=== PATIENT | male | born 1960 | race Hispanic/Latino ===

== ENCOUNTER 2018-03-02 05:55 | Inpatient (IN) | payer OTHER, MEDICARE ==
[2018-02-27 13:45] VITALS: BP 121/68
[2018-02-27 14:03] LABS: BASOPHILS % (AUTO) 0.8 % (0.0-5.0); EOSINOPHILS % (AUTO) 1.9 % (0.0-8.0); HEMATOCRIT 36.4 % (42-54); LYMPHOCYTES % (AUTO) 14.4 % (21.0-51.0); MEAN CORPUSCULAR HEMOGLOBIN 30.6 pg (27.0-33.0); MEAN CORPUSCULAR HGB CONC 33.8 g/dL (32.0-36.0); MEAN CORPUSCULAR VOLUME 90.5 fL (79-99); MONOCYTES % (AUTO) 8.6 % (3.0-13.0); NEUTROPHILS % (AUTO) 74.3 % (40.0-77.0); PLATELET COUNT (AUTO) 153 K/uL (130-400); RED BLOOD CELL COUNT(AUTO) 4.03 MIL/uL (4.50-6.20); RED CELL DISTRIBUTION WIDTH 16.1 % (11.0-15.5); WHITE BLOOD COUNT (AUTO) 6.2 K/uL (4.8-10.8)
[2018-02-27 14:15] LABS: CREATININE 1.5 mg/dL (0.5-1.5); POTASSIUM 5.4 mmol/L (3.5-5.1)
[2018-02-27 14:17] LABS: INR 2.19 (0.85-1.15); PARTIAL THROMBOPLASTIN TIME 36.2 SEC (26.3-35.5); PROTHROMBIN TIME 22.6 SEC (9.6-11.6)
[2018-02-27 14:27] LABS: APPEARANCE,URINE Clear (CLEAR); BILIRUBIN,URINE Negative (NEGATIVE); COLOR,URINE Yellow (YELLOW); GLUCOSE, URINE (UA) Negative (NEGATIVE); KETONES,URINE Negative (NEGATIVE); LEUKOCYTE ESTERASE ,URINE Negative (NEGATIVE); NITRATE,URINE Negative (NEGATIVE); OCCULT BLOOD,URINE Negative (NEGATIVE); PROTEIN,URINE Trace (NEGATIVE)
[2018-02-27 14:58] LABS: BACTERIA,URINE Rare /HPF (None Seen); RBC,URINE None Seen /HPF (0-1); SQUAMOUS EPITHELIAL CELL,UR None Seen /HPF (0-2); WBC,URINE None Seen /HPF (0-1)
[2018-03-02] VITALS (21 sets, daily range): BP systolic 97–164; BP diastolic 56–90
[~2018-03-02] VITALS: Ht 172.7 cm; Wt 108.3 kg
[~2018-03-02 05:55] MED LIST: ALLO100T PO; ATOR40TA71 PO; FURO20TA4 PO; GABA-529 PO; GLIP-220 PO; INSU300I SQ; ISOS30TA6 PO; LINA1TAB3 PO; LISI-617 PO; METO25TA6 PO; SODIUM CHLORIDE 0.9% 500ML 500 ML IV SCH; WARF7.5T49 PO
[2018-03-02 06:31] LABS: CREATININE 1.5 mg/dL (0.5-1.5)
[2018-03-02 06:34] LABS: INR 1.53 (0.85-1.15); PARTIAL THROMBOPLASTIN TIME 33.1 SEC (26.3-35.5); PROTHROMBIN TIME 15.9 SEC (9.6-11.6)
[2018-03-02] MEDS ORDERED: SODIUM CHLORIDE 0.9% 1000ML 1,000 ML IV ONE (07:12)
[2018-03-02] MEDS ORDERED: LIDOCAINE HCL-MPF 2% 5ML VIAL ONE (09:00)
[2018-03-02] MEDS ORDERED: IOHEXOL 350 MG/ML 100ML INFUS..BTL IV ONE ×2 (09:01→09:18)
[2018-03-02] MEDS ORDERED: NITROGLYCERIN 5 MG/ML 10 ML VIAL IV ONE (09:01)
[2018-03-02] MEDS ORDERED: IOHEXOL-350 50ML VIAL IV ONE (09:01)
[2018-03-02] MEDS ORDERED: MIDAZOLAM HCL 1 MG/ML 2ML VIAL ONE (09:07)
[2018-03-02] MEDS ORDERED: FENTANYL CITRATE PF 50 MCG/1 ML 2ML VIAL ONE (09:08)
[2018-03-02] MEDS ORDERED: SODIUM CHLORIDE 0.9% 1000ML 1,000 ML IV SCH (09:26)
[2018-03-02] MEDS ORDERED: DEXTROSE 50%-WATER 50 ML DISP.SYRIN IV PRN (09:30)
[2018-03-02] MEDS ORDERED: NITROGLYCERIN 0.4 MG SL TAB SL PRN (09:30)
[2018-03-02] MEDS ORDERED: GLUCAGON 1MG KIT 1 MG ML IM PRN (09:30)
[2018-03-02] MEDS ORDERED: HYDRALAZINE HCL 20 MG/ML VIAL IV PRN (09:30)
[2018-03-02] MEDS ORDERED: ATROPINE SULFATE 0.1 MG/ML 10 ML SYG IVP ONE (09:42)
[2018-03-02] MEDS: INSULIN HUMULIN R 100 UNIT/ML 3ML SQ SCH ×3 (11:30→21:45)
[2018-03-02] MEDS: GABAPENTIN 100 MG CAPSULE PO SCH ×2 (13:36→21:41)
[2018-03-02 14:41] LABS: CREATINE KINASE MB 1.8 ng/mL (0.5-3.6); TROPONIN I 0.08 ng/mL (0.00-0.06)
[2018-03-02] MEDS ORDERED: ENOXAPARIN SODIUM 100 MG/1 ML SQ SCH (15:00)
[2018-03-02 18:58] LABS: HEMOGLOBIN A1C 7.7 % (4.0-6.0)
[2018-03-02] MEDS ORDERED: CEFUROXIME SODIUM 1.5 GM VIAL IVP PRN (19:00)
[2018-03-02] MEDS: ATORVASTATIN CALCIUM 40 MG TABLET PO SCH (21:41)
[2018-03-02] MEDS: METOPROLOL TARTRATE 25 MG TAB PO SCH (21:41)
[2018-03-03] VITALS (7 sets, daily range): BP systolic 82–151; BP diastolic 54–72
[2018-03-03 04:20] LABS: HEMATOCRIT 36.1 % (42-54); MEAN CORPUSCULAR HEMOGLOBIN 30.8 pg (27.0-33.0); MEAN CORPUSCULAR HGB CONC 34.3 g/dL (32.0-36.0); MEAN CORPUSCULAR VOLUME 89.8 fL (79-99); PLATELET COUNT (AUTO) 149 K/uL (130-400); RED BLOOD CELL COUNT(AUTO) 4.02 MIL/uL (4.50-6.20); RED CELL DISTRIBUTION WIDTH 16.1 % (11.0-15.5); WHITE BLOOD COUNT (AUTO) 7.1 K/uL (4.8-10.8)
[2018-03-03 04:28] LABS: INR 1.22 (0.85-1.15); PARTIAL THROMBOPLASTIN TIME 32.9 SEC (26.3-35.5); PROTHROMBIN TIME 12.8 SEC (9.6-11.6)
[2018-03-03 04:40] LABS: CREATININE 1.4 mg/dL (0.5-1.5); POTASSIUM 4.5 mmol/L (3.5-5.1)
[2018-03-03] MEDS: INSULIN HUMULIN R 100 UNIT/ML 3ML SQ SCH (06:43)
[2018-03-03] MEDS ORDERED: LIDOCAINE HCL-MPF 0.5% 50ML VIAL IJ ONE (06:44)
[2018-03-03] MEDS ORDERED: OCTYL 2-CYANOACRYLATE 1 EACH TP ONE ×2 (06:44→14:49)
[2018-03-03] MEDS ORDERED: BACITRACIN 50,000 UNIT VIAL ONE (06:44)
[2018-03-03] MEDS: METOPROLOL TARTRATE 25 MG TAB PO SCH (06:48)
[2018-03-03] MEDS ORDERED: SODIUM CHLORIDE 0.9% 1000ML 1,000 ML IV ONE (06:55)
[2018-03-03] MEDS ORDERED: CEFUROXIME 1.5GM+NS 100ML 100 ML IV SCH ×2 (07:00→21:45)
[2018-03-03] MEDS ORDERED: EPINEPHRINE 1 MG/ML AMPULE ONE (07:12)
[2018-03-03] MEDS ORDERED: AMINOCAPROIC ACID 250 MG/ML 20 ML VIAL IV ONE (07:12)
[2018-03-03] MEDS ORDERED: NOREPINEPHRINE BITARTRATE 1 MG/1 ML ML IV ONE (07:12)
[2018-03-03] MEDS ORDERED: LIDOCAINE PF 2% 5ML ABBOJECT ONE (07:12)
[2018-03-03] MEDS ORDERED: PROTAMINE SULFATE 10 MG/ML 25ML VIAL IV ONE (07:12)
[2018-03-03] MEDS ORDERED: ESMOLOL HCL 10 MG/ML 10 ML VIAL ONE (07:12)
[2018-03-03] MEDS ORDERED: ROCURONIUM BROMIDE 10MG/1ML 5ML VL ONE ×2 (07:12→12:51)
[2018-03-03] MEDS ORDERED: GLYCOPYRROLATE 0.2 MG/ML 5 ML VIAL ONE (07:12)
[2018-03-03] MEDS ORDERED: MILRINONE-D5W 20 MG/100 ML 100 ML IV ONE (07:12)
[2018-03-03] MEDS ORDERED: HEPARIN SODIUM 1000UNIT/ML 10ML VIAL ONE ×2 (07:12→07:48)
[2018-03-03] MEDS ORDERED: NEOSTIGMINE 5MG/5ML SYR IV ONE (07:12)
[2018-03-03] MEDS ORDERED: PROPOFOL 10 MG/ML 20ML VIAL IV ONE (07:13)
[2018-03-03] MEDS ORDERED: MIDAZOLAM HCL 1 MG/ML 5ML VIAL ONE (07:13)
[2018-03-03] MEDS ORDERED: FENTANYL CITRATE PF 50 MCG/1 ML 20ML VIAL IJ ONE ×2 (07:13→10:37)
[2018-03-03] MEDS ORDERED: NITROGLYCERIN 50 MG/D5% WATER 1 BOT ONE (07:23)
[2018-03-03] MEDS ORDERED: POTASSIUM CHLORIDE 20MEQ/100ML 200 ML IV ONE (07:32)
[2018-03-03] MEDS ORDERED: SODIUM BICARB 8.4% 50ML SYRINGE ONE ×2 (07:33→07:35)
[2018-03-03] MEDS ORDERED: THROMBIN-JMI 5000 UNIT/VIAL TP ONE (07:48)
[2018-03-03 08:13] LABS: ABG BASE EXCESS -1.3 mmol/L (-2.0-3.0); ABG HCO3 23.3 mmol/L (21.0-28.0); ABG OXYGEN SATURATION 99.2 % (95.0-99.0); ABG PCO2 39 mmHg (35-48)
[2018-03-03] MEDS ORDERED: ISOSORBIDE MONO 30MG TAB SR PO SCH (09:00)
[2018-03-03] MEDS ORDERED: LISINOPRIL 5 MG TABLET PO SCH (09:00)
[2018-03-03] MEDS ORDERED: FUROSEMIDE 20 MG TABLET PO SCH (09:00)
[2018-03-03] MEDS ORDERED: ALLOPURINOL 100 MG TABLET PO SCH (09:00)
[2018-03-03 09:50] LABS: ABG BASE EXCESS -2.3 mmol/L (-2.0-3.0); ABG HCO3 22.7 mmol/L (21.0-28.0); ABG PCO2 40 mmHg (35-48)
[2018-03-03 11:18] LABS: ABG BASE EXCESS -0.9 mmol/L (-2.0-3.0); ABG OXYGEN SATURATION 99.1 % (95.0-99.0); ABG PCO2 36 mmHg (35-48)
[2018-03-03] MEDS ORDERED: CEFUROXIME SODIUM 1.5 GM VIAL ONE (11:23)
[2018-03-03 12:22] LABS: ABG BASE EXCESS -3.3 mmol/L (-2.0-3.0); ABG HCO3 21.5 mmol/L (21.0-28.0); ABG OXYGEN SATURATION 99.1 % (95.0-99.0); ABG PCO2 38 mmHg (35-48)
[2018-03-03] MEDS ORDERED: INSULIN HUMULIN R 100 UNIT/ML 3ML ONE (12:24)
[2018-03-03 13:36] LABS: ABG HCO3 20.9 mmol/L (21.0-28.0); ABG OXYGEN SATURATION 96.4 % (95.0-99.0); ABG PCO2 42 mmHg (35-48)
[2018-03-03] MEDS ORDERED: SODIUM CHLORIDE 0.9% 500ML 500 ML IV SCH (13:39)
[2018-03-03] MEDS ORDERED: AMINOCAPROIC ACID 15,000 MG in SODIUM CHLORIDE 0.9% 250 ML IV SCH (13:45)
[2018-03-03] MEDS ORDERED: ACETAMINOPHEN 650 MG SUPPOSITORY RC PRN (13:45)
[2018-03-03] MEDS ORDERED: SODIUM CHLORIDE 0.9% 250 ML IV PRN (13:45)
[2018-03-03] MEDS ORDERED: SODIUM CHLORIDE 0.9% 1000ML 1,000 ML IV SCH (13:45)
[2018-03-03] MEDS ORDERED: ALBUMIN (HUMAN) 5% 250 ML IV PRN (13:45)
[2018-03-03] MEDS ORDERED: EPINEPHRINE 2 MG in SODIUM CHLORIDE 0.9% 250 ML IV PRN (13:45)
[2018-03-03] MEDS ORDERED: NOREPINEPHRINE 4MG/NS 250ML 250 ML IV PRN (13:45)
[2018-03-03] MEDS ORDERED: ONDANSETRON HCL 4 MG/2 ML VIAL IV PRN (13:45)
[2018-03-03] MEDS ORDERED: NITROGLYCERIN 50 MG/D5% WATER 250 BOT IV SCH (13:45)
[2018-03-03] MEDS ORDERED: PROPOFOL 1000 MG/100 ML 100 ML IV PRN ×2 (13:45→15:15)
[2018-03-03] MEDS ORDERED: GLUCAGON 1MG KIT 1 MG ML IM PRN (13:45)
[2018-03-03] MEDS ORDERED: SODIUM BICARB 8.4% 50ML SYRINGE IV PRN (13:45)
[2018-03-03] MEDS ORDERED: CALCIUM GLUCONATE 1 GM in SODIUM CHLORIDE 0.9% 50 ML IV PRN (13:45)
[2018-03-03] MEDS ORDERED: MORPHINE SULFATE 4 MG/1ML SYG IV PRN (13:45)
[2018-03-03] MEDS ORDERED: DEXTROSE 50%-WATER 50 ML DISP.SYRIN IV PRN (13:45)
[2018-03-03] MEDS ORDERED: POTASSIUM PHOS 15 mMOL+NS250ML 250 ML IV PRN (13:45)
[2018-03-03] MEDS ORDERED: SODIUM CHLORIDE 0.9% 10 ML VIAL IVP PRN (13:45)
[2018-03-03] MEDS ORDERED: NICARDIPINE HCL 100 MG in SODIUM CHLORIDE 0.9% 100 ML IV PRN (13:45)
[2018-03-03 14:10] LABS: ABG BASE EXCESS -1.7 mmol/L (-2.0-3.0); ABG HCO3 23.2 mmol/L (21.0-28.0); ABG OXYGEN SATURATION 95.6 % (95.0-99.0); ABG PCO2 40 mmHg (35-48)
[2018-03-03] MEDS ORDERED: ALBUMIN (HUMAN) 5% 500 ML IV ONE (14:11)
[2018-03-03] MEDS ORDERED: SUB TO ALBUTEROL 2.5MG/3ML NEBULES PER P&T IH ONE (14:24)
[2018-03-03] MEDS ORDERED: FUROSEMIDE 10 MG/ML 4ML VIAL ONE (14:31)
[2018-03-03] MEDS ORDERED: FENTANYL CITRATE PF 50 MCG/1 ML 2ML VIAL ONE ×3 (14:32)
[2018-03-03 15:46] LABS: ABG BASE EXCESS -0.3 mmol/L (-2.0-3.0); ABG HCO3 25.1 mmol/L (21.0-28.0); ABG OXYGEN SATURATION 90.7 % (95.0-99.0); ABG PCO2 44 mmHg (35-48)
[2018-03-03] MEDS ORDERED: IPRATROPIUM/ALBUTEROL SULFATE 3 ML SOLUTION IH ONE (15:59)
[2018-03-03 16:05] LABS: CREATININE 1.8 mg/dL (0.5-1.5); MAGNESIUM 1.2 mg/dL (1.80-2.40); PHOSPHORUS 3.1 mg/dL (2.5-4.9); POTASSIUM 3.8 mmol/L (3.5-5.1)
[2018-03-03 16:09] LABS: HEMATOCRIT 32.8 % (42-54); MEAN CORPUSCULAR HEMOGLOBIN 30.7 pg (27.0-33.0); MEAN CORPUSCULAR HGB CONC 33.8 g/dL (32.0-36.0); MEAN CORPUSCULAR VOLUME 90.9 fL (79-99); PLATELET COUNT (AUTO) 150 K/uL (130-400); RED BLOOD CELL COUNT(AUTO) 3.61 MIL/uL (4.50-6.20); RED CELL DISTRIBUTION WIDTH 16.3 % (11.0-15.5); WHITE BLOOD COUNT (AUTO) 17.6 K/uL (4.8-10.8)
[2018-03-03] MEDS: INSULIN REGULAR, HUMAN 3ML 100 UNIT in SODIUM CHLORIDE 0.9% 99 ML IV SCH ×2 (16:14)
[2018-03-03] MEDS: POTASSIUM CHLORIDE 20MEQ/100ML 100 ML IV PRN (16:16)
[2018-03-03] MEDS: MORPHINE SULFATE 2 MG/ML 1ML SYG IV PRN ×2 (17:24→23:56)
[2018-03-03 18:42] LABS: ABG BASE EXCESS 1.3 mmol/L (-2.0-3.0); ABG HCO3 27.5 mmol/L (21.0-28.0); ABG OXYGEN SATURATION 94.9 % (95.0-99.0); ABG PCO2 49 mmHg (35-48)
[2018-03-03] MEDS: ACETAMINOPHEN 325 MG TAB PO PRN (19:42)
[2018-03-03] MEDS: ATORVASTATIN CALCIUM 40 MG TABLET PO SCH (21:00)
[2018-03-03] MEDS ORDERED: ALBUMIN (HUMAN) 5% 250 ML IV ONE ×2 (21:15→21:29)
[2018-03-03] MEDS: ACETYLCYSTEINE 20% 200MG/ML 4ML VIAL IH SCH (22:10)
[2018-03-03] MEDS: ALBUTEROL SULFATE 0.083% 2.5 MG/3 ML INH IH SCH (22:10)
[2018-03-03] MEDS: DOBUTAMINE 250MG/D5 250ML 250 ML IV SCH (22:11)
[2018-03-03] MEDS: CEFUROXIME SODIUM 1.5 GM VIAL IVP SCH (22:45)
[2018-03-03 23:57] LABS: MAGNESIUM 1.6 mg/dL (1.80-2.40); POTASSIUM 3.9 mmol/L (3.5-5.1)
[2018-03-04] VITALS (17 sets, daily range): BP systolic 102–138; BP diastolic 63–79
[2018-03-04] MEDS: POTASSIUM CHLORIDE 20MEQ/100ML 100 ML IV PRN ×3 (00:28→21:19)
[2018-03-04] MEDS: MAGNESIUM 2GM PREMIX 50ML 50 ML IV PRN (00:28)
[2018-03-04 04:18] LABS: ABG BASE EXCESS 5.4 mmol/L (-2.0-3.0); ABG HCO3 28.1 mmol/L (21.0-28.0); ABG OXYGEN SATURATION 97.1 % (95.0-99.0); ABG PCO2 35 mmHg (35-48)
[2018-03-04] MEDS: MORPHINE SULFATE 2 MG/ML 1ML SYG IV PRN ×2 (04:20→11:30)
[2018-03-04 04:42] LABS: HEMATOCRIT 28.6 % (42-54); MEAN CORPUSCULAR HGB CONC 35.3 g/dL (32.0-36.0); MEAN CORPUSCULAR VOLUME 90.6 fL (79-99); PLATELET COUNT (AUTO) 115 K/uL (130-400); RED BLOOD CELL COUNT(AUTO) 3.16 MIL/uL (4.50-6.20); RED CELL DISTRIBUTION WIDTH 16.1 % (11.0-15.5); WHITE BLOOD COUNT (AUTO) 9.9 K/uL (4.8-10.8)
[2018-03-04 04:53] LABS: INR 1.11 (0.85-1.15); PARTIAL THROMBOPLASTIN TIME 30.1 SEC (26.3-35.5); PROTHROMBIN TIME 11.6 SEC (9.6-11.6)
[2018-03-04 05:05] LABS: CREATININE 1.5 mg/dL (0.5-1.5); MAGNESIUM 2.1 mg/dL (1.80-2.40); PHOSPHORUS 1.8 mg/dL (2.5-4.9); POTASSIUM 4.1 mmol/L (3.5-5.1)
[2018-03-04] MEDS: IPRATROPIUM/ALBUTEROL SULFATE 3 ML SOLUTION IH SCH ×3 (06:00→18:00)
[2018-03-04] MEDS: ACETYLCYSTEINE 20% 200MG/ML 4ML VIAL IH SCH ×3 (06:00→22:14)
[2018-03-04] MEDS: ALBUTEROL SULFATE 0.083% 2.5 MG/3 ML INH IH SCH ×3 (06:00→22:14)
[2018-03-04] MEDS ORDERED: FUROSEMIDE 10 MG/ML 4ML VIAL ONE (07:39)
[2018-03-04] MEDS ORDERED: FUROSEMIDE 100 MG in SODIUM CHLORIDE 0.9% 90 ML IV SCH (08:30)
[2018-03-04] MEDS: PANTOPRAZOLE 40 MG/VIAL IV SCH (09:05)
[2018-03-04] MEDS: ASPIRIN 81MG TAB.CHEW PO SCH (09:07)
[2018-03-04 10:18] LABS: ABG HCO3 28.5 mmol/L (21.0-28.0); ABG OXYGEN SATURATION 97.4 % (95.0-99.0); ABG PCO2 34 mmHg (35-48)
[2018-03-04] MEDS: CEFUROXIME SODIUM 1.5 GM VIAL IVP SCH ×2 (10:56→21:00)
[2018-03-04] MEDS ORDERED: LIDOCAINE HCL 1% 20 ML VIAL ONE (12:21)
[2018-03-04] MEDS ORDERED: FENTANYL CITRATE PF 50 MCG/1 ML 2ML VIAL IVP SCH (13:15)
[2018-03-04] MEDS ORDERED: MIDAZOLAM HCL 1 MG/ML 2ML VIAL IVP SCH ×2 (13:15→13:30)
[2018-03-04] MEDS: ZOSYN 3.375GM+NS 50ML 50 ML IV SCH ×2 (14:29→21:01)
[2018-03-04 14:36] LABS: CREATININE 1.5 mg/dL (0.5-1.5); POTASSIUM 3.8 mmol/L (3.5-5.1)
[2018-03-04 16:31] LABS: ABG BASE EXCESS 4.9 mmol/L (-2.0-3.0); ABG HCO3 27.5 mmol/L (21.0-28.0); ABG OXYGEN SATURATION 97.1 % (95.0-99.0); ABG PCO2 34 mmHg (35-48)
[2018-03-04] MEDS ORDERED: MORPHINE SULFATE 4 MG/1ML SYG IV PRN (19:30)
[2018-03-04] MEDS: ACETAMINOPHEN 325 MG TAB PO PRN (20:00)
[2018-03-04] MEDS: ATORVASTATIN CALCIUM 20 MG TABLET PO SCH (20:36)
[2018-03-04] MEDS: INSULIN REGULAR, HUMAN 3ML 100 UNIT in SODIUM CHLORIDE 0.9% 99 ML IV SCH ×2 (20:38)
[2018-03-04] MEDS: TRAMADOL HCL 50 MG TABLET PO PRN (23:59)
[2018-03-05] VITALS (24 sets, daily range): BP systolic 103–126; BP diastolic 50–80
[2018-03-05] MEDS: MORPHINE SULFATE 2 MG/ML 1ML SYG IVP PRN ×2 (03:12→05:38)
[2018-03-05 04:07] LABS: ABG BASE EXCESS 2.2 mmol/L (-2.0-3.0); ABG HCO3 23.8 mmol/L (21.0-28.0); ABG OXYGEN SATURATION 97.6 % (95.0-99.0); ABG PCO2 29 mmHg (35-48)
[2018-03-05 04:14] LABS: HEMATOCRIT 27.9 % (42-54); MEAN CORPUSCULAR HEMOGLOBIN 31.1 pg (27.0-33.0); MEAN CORPUSCULAR HGB CONC 34.3 g/dL (32.0-36.0); MEAN CORPUSCULAR VOLUME 90.8 fL (79-99); PLATELET COUNT (AUTO) 104 K/uL (130-400); RED BLOOD CELL COUNT(AUTO) 3.08 MIL/uL (4.50-6.20); RED CELL DISTRIBUTION WIDTH 16.7 % (11.0-15.5); WHITE BLOOD COUNT (AUTO) 10.7 K/uL (4.8-10.8)
[2018-03-05 04:25] LABS: MAGNESIUM 1.9 mg/dL (1.80-2.40); PHOSPHORUS 3.2 mg/dL (2.5-4.9)
[2018-03-05] MEDS: ZOSYN 3.375GM+NS 50ML 50 ML IV SCH ×3 (04:35→20:51)
[2018-03-05 04:50] LABS: CREATININE 1.7 mg/dL (0.5-1.5); POTASSIUM 3.9 mmol/L (3.5-5.1)
[2018-03-05] MEDS: IPRATROPIUM/ALBUTEROL SULFATE 3 ML SOLUTION IH SCH ×4 (06:00→18:00)
[2018-03-05] MEDS: MAGNESIUM 2GM PREMIX 50ML 50 ML IV PRN (06:07)
[2018-03-05] MEDS: POTASSIUM CHLORIDE 20MEQ/100ML 100 ML IV PRN ×2 (06:08→19:38)
[2018-03-05] MEDS: ACETYLCYSTEINE 20% 200MG/ML 4ML VIAL IH SCH ×3 (06:14→21:48)
[2018-03-05] MEDS: ALBUTEROL SULFATE 0.083% 2.5 MG/3 ML INH IH SCH ×3 (06:14→21:48)
[2018-03-05] MEDS: FUROSEMIDE 10 MG/ML 2ML VIAL IV SCH ×4 (08:09→21:00)
[2018-03-05] MEDS: ASPIRIN 81MG TAB.CHEW PO SCH (08:09)
[2018-03-05] MEDS: POTASSIUM CHLORIDE 20 MEQ ERTAB PO SCH ×2 (08:09→20:04)
[2018-03-05 08:14] LABS: ABG BASE EXCESS 3.4 mmol/L (-2.0-3.0); ABG HCO3 26.6 mmol/L (21.0-28.0); ABG OXYGEN SATURATION 95.8 % (95.0-99.0); ABG PCO2 36 mmHg (35-48)
[2018-03-05] MEDS: PANTOPRAZOLE 40 MG/VIAL IV SCH (08:48)
[2018-03-05] MEDS: TRAMADOL HCL 50 MG TABLET PO PRN (13:08)
[2018-03-05 14:24] LABS: ABG BASE EXCESS 1.1 mmol/L (-2.0-3.0); ABG PCO2 38 mmHg (35-48)
[2018-03-05] MEDS: CLINDAMYCIN 600 MG/D5% WATER 50 ML IV SCH ×2 (15:33→20:32)
[2018-03-05 15:42] LABS: ABG BASE EXCESS -1.7 mmol/L (-2.0-3.0); ABG HCO3 22.8 mmol/L (21.0-28.0); ABG OXYGEN SATURATION 92.1 % (95.0-99.0); ABG PCO2 38 mmHg (35-48)
[2018-03-05] MEDS: ATORVASTATIN CALCIUM 20 MG TABLET PO SCH (19:27)
[2018-03-05] MEDS: ACETAMINOPHEN 325 MG TAB PO PRN (19:28)
[2018-03-05] MEDS: METOPROLOL TARTRATE 25 MG TAB PO SCH (20:06)
[2018-03-05 21:40] LABS: ABG BASE EXCESS -1.4 mmol/L (-2.0-3.0); ABG HCO3 22.6 mmol/L (21.0-28.0); ABG OXYGEN SATURATION 92.6 % (95.0-99.0); ABG PCO2 36 mmHg (35-48)
[2018-03-05] MEDS ORDERED: SODIUM BICARB 50MEQ 50ML VIAL ONE (21:55)
[2018-03-05] MEDS ORDERED: ALBUMIN (HUMAN) 5% 250 ML IV ONE (21:55)
[2018-03-05] MEDS ORDERED: ALBUMIN (HUMAN) 5% 250 ML IV SCH (22:00)
[2018-03-05] MEDS: DOBUTAMINE 250MG/D5 250ML 250 ML IV SCH (22:14)
[2018-03-06] VITALS (20 sets, daily range): BP systolic 97–125; BP diastolic 59–75
[2018-03-06] MEDS: CLINDAMYCIN 600 MG/D5% WATER 50 ML IV SCH ×4 (02:05→21:23)
[2018-03-06] MEDS: ACETAMINOPHEN 325 MG TAB PO PRN (02:17)
[2018-03-06 04:25] LABS: HEMATOCRIT 25.2 % (42-54); MEAN CORPUSCULAR HEMOGLOBIN 31.4 pg (27.0-33.0); MEAN CORPUSCULAR HGB CONC 34.1 g/dL (32.0-36.0); NUCLEATED RED BLOOD CELLS 0.1 % (0.0-0.19); PLATELET COUNT (AUTO) 120 K/uL (130-400); RED BLOOD CELL COUNT(AUTO) 2.74 MIL/uL (4.50-6.20); RED CELL DISTRIBUTION WIDTH 16.5 % (11.0-15.5); WHITE BLOOD COUNT (AUTO) 10.7 K/uL (4.8-10.8)
[2018-03-06] MEDS: ZOSYN 3.375GM+NS 50ML 50 ML IV SCH ×3 (04:36→21:56)
[2018-03-06 04:42] LABS: CREATININE 1.8 mg/dL (0.5-1.5); MAGNESIUM 2.4 mg/dL (1.80-2.40); POTASSIUM 4.3 mmol/L (3.5-5.1)
[2018-03-06] MEDS: IPRATROPIUM/ALBUTEROL SULFATE 3 ML SOLUTION IH SCH ×3 (06:00→12:00)
[2018-03-06] MEDS: ALBUTEROL SULFATE 0.083% 2.5 MG/3 ML INH IH SCH ×3 (06:12→22:35)
[2018-03-06] MEDS: ACETYLCYSTEINE 20% 200MG/ML 4ML VIAL IH SCH ×3 (06:12→22:35)
[2018-03-06] MEDS: POTASSIUM CHLORIDE 20 MEQ ERTAB PO SCH ×2 (08:33→21:23)
[2018-03-06] MEDS: ASPIRIN 81MG TAB.CHEW PO SCH (08:33)
[2018-03-06] MEDS: FUROSEMIDE 10 MG/ML 2ML VIAL IV SCH ×3 (08:40→21:22)
[2018-03-06] MEDS: METOPROLOL TARTRATE 25 MG TAB PO SCH ×2 (11:03→21:23)
[2018-03-06] MEDS: INSULIN HUMULIN R 100 UNIT/ML 3ML SQ SCH ×3 (12:38→21:00)
[2018-03-06] MEDS: TRAMADOL HCL 50 MG TABLET PO PRN (12:49)
[2018-03-06] MEDS: ATORVASTATIN CALCIUM 20 MG TABLET PO SCH (21:23)
[2018-03-07] VITALS (19 sets, daily range): BP systolic 95–149; BP diastolic 61–81
[2018-03-07] MEDS: TRAMADOL HCL 50 MG TABLET PO PRN (03:14)
[2018-03-07] MEDS: CLINDAMYCIN 600 MG/D5% WATER 50 ML IV SCH ×4 (03:18→21:19)
[2018-03-07] MEDS: ZOSYN 3.375GM+NS 50ML 50 ML IV SCH ×3 (04:44→21:19)
[2018-03-07] MEDS: IPRATROPIUM/ALBUTEROL SULFATE 3 ML SOLUTION IH SCH ×2 (06:00→12:00)
[2018-03-07] MEDS: INSULIN HUMULIN R 100 UNIT/ML 3ML SQ SCH ×4 (06:35→21:00)
[2018-03-07] MEDS: ACETYLCYSTEINE 20% 200MG/ML 4ML VIAL IH SCH ×3 (06:50→22:22)
[2018-03-07] MEDS: ALBUTEROL SULFATE 0.083% 2.5 MG/3 ML INH IH SCH ×3 (06:50→22:21)
[2018-03-07] MEDS ORDERED: ENOXAPARIN SODIUM 30 MG/0.3 ML SQ SCH (09:00)
[2018-03-07] MEDS: POTASSIUM CHLORIDE 20 MEQ ERTAB PO SCH ×2 (09:00→21:19)
[2018-03-07] MEDS: PANTOPRAZOLE SODIUM 40 MG TABLET.DR PO SCH (09:20)
[2018-03-07] MEDS: METOPROLOL TARTRATE 25 MG TAB PO SCH ×2 (09:20→21:18)
[2018-03-07] MEDS: ASPIRIN 81MG TAB.CHEW PO SCH (09:20)
[2018-03-07] MEDS: ATORVASTATIN CALCIUM 20 MG TABLET PO SCH (21:19)
[2018-03-08 03:31] VITALS: BP 119/79
[2018-03-08 04:04] LABS: BASOPHILS % (AUTO) 0.7 % (0.0-5.0); EOSINOPHILS % (AUTO) 1.5 % (0.0-8.0); HEMATOCRIT 27.3 % (42-54); LYMPHOCYTES % (AUTO) 7.6 % (21.0-51.0); MEAN CORPUSCULAR HEMOGLOBIN 31.8 pg (27.0-33.0); MEAN CORPUSCULAR HGB CONC 34.5 g/dL (32.0-36.0); MEAN CORPUSCULAR VOLUME 92.3 fL (79-99); MONOCYTES % (AUTO) 9.3 % (3.0-13.0); NEUTROPHILS % (AUTO) 80.9 % (40.0-77.0); NUCLEATED RED BLOOD CELLS 0.1 % (0.0-0.19); PLATELET COUNT (AUTO) 220 K/uL (130-400); RED BLOOD CELL COUNT(AUTO) 2.96 MIL/uL (4.50-6.20); RED CELL DISTRIBUTION WIDTH 15.9 % (11.0-15.5); WHITE BLOOD COUNT (AUTO) 11.3 K/uL (4.8-10.8)
[2018-03-08 04:22] LABS: CREATININE 1.7 mg/dL (0.5-1.5); MAGNESIUM 2.7 mg/dL (1.80-2.40); PHOSPHORUS 2.9 mg/dL (2.5-4.9); POTASSIUM 4.6 mmol/L (3.5-5.1)
[2018-03-08] MEDS: CLINDAMYCIN 600 MG/D5% WATER 50 ML IV SCH ×4 (04:48→21:45)
[2018-03-08] MEDS: ZOSYN 3.375GM+NS 50ML 50 ML IV SCH ×3 (04:48→22:52)
[2018-03-08] MEDS: IPRATROPIUM/ALBUTEROL SULFATE 3 ML SOLUTION IH SCH ×2 (06:00→12:00)
[2018-03-08] MEDS: ACETYLCYSTEINE 20% 200MG/ML 4ML VIAL IH SCH ×3 (06:06→21:35)
[2018-03-08] MEDS: ALBUTEROL SULFATE 0.083% 2.5 MG/3 ML INH IH SCH ×3 (06:06→21:34)
[2018-03-08 07:24] VITALS: BP 138/74
[2018-03-08] MEDS: INSULIN HUMULIN R 100 UNIT/ML 3ML SQ SCH ×4 (07:26→21:43)
[2018-03-08] MEDS: ASPIRIN 81MG TAB.CHEW PO SCH (08:14)
[2018-03-08] MEDS: PANTOPRAZOLE SODIUM 40 MG TABLET.DR PO SCH (08:14)
[2018-03-08] MEDS: POTASSIUM CHLORIDE 20 MEQ ERTAB PO SCH ×2 (08:15→21:47)
[2018-03-08] MEDS: FUROSEMIDE 20 MG TABLET PO SCH (08:15)
[2018-03-08] MEDS: METOPROLOL TARTRATE 25 MG TAB PO SCH ×2 (08:16→21:47)
[2018-03-08] MEDS: ENOXAPARIN SODIUM 100 MG/1 ML SQ SCH ×2 (08:18→21:48)
[2018-03-08] MEDS ORDERED: ENOXAPARIN SODIUM 1 MG/KG SQ SCH (09:00)
[2018-03-08 11:32] VITALS: BP 128/72
[2018-03-08] MEDS ORDERED: WARFARIN SODIUM 7.5 MG TAB PO SCH ×2 (16:00)
[2018-03-08 16:11] VITALS: BP 135/55
[2018-03-08 19:39] VITALS: BP 128/63
[2018-03-08] MEDS: ATORVASTATIN CALCIUM 20 MG TABLET PO SCH (21:47)
[2018-03-08 23:44] VITALS: BP 123/66
[2018-03-09 03:32] VITALS: BP 119/65
[2018-03-09 03:50] LABS: INR 2.95 (0.85-1.15); PROTHROMBIN TIME 30.3 SEC (9.6-11.6)
[2018-03-09] MEDS: CLINDAMYCIN 600 MG/D5% WATER 50 ML IV SCH ×4 (04:45→21:23)
[2018-03-09] MEDS: ZOSYN 3.375GM+NS 50ML 50 ML IV SCH ×3 (05:32→22:15)
[2018-03-09] MEDS: INSULIN HUMULIN R 100 UNIT/ML 3ML SQ SCH ×4 (06:23→21:41)
[2018-03-09] MEDS: ACETYLCYSTEINE 20% 200MG/ML 4ML VIAL IH SCH ×2 (06:32→22:20)
[2018-03-09] MEDS: ALBUTEROL SULFATE 0.083% 2.5 MG/3 ML INH IH SCH ×2 (06:32→22:20)
[2018-03-09 07:48] VITALS: BP 121/74
[2018-03-09] MEDS: METOPROLOL TARTRATE 25 MG TAB PO SCH ×2 (09:31→21:17)
[2018-03-09] MEDS: FUROSEMIDE 20 MG TABLET PO SCH ×2 (09:32→21:23)
[2018-03-09] MEDS: ASPIRIN 81MG TAB.CHEW PO SCH (09:32)
[2018-03-09] MEDS: PANTOPRAZOLE SODIUM 40 MG TABLET.DR PO SCH (09:35)
[2018-03-09] MEDS: ENOXAPARIN SODIUM 100 MG/1 ML SQ SCH (09:35)
[2018-03-09] MEDS: POTASSIUM CHLORIDE 20 MEQ ERTAB PO SCH ×2 (09:35→21:22)
[2018-03-09 11:48] VITALS: BP 108/63
[2018-03-09 16:00] VITALS: BP 120/73
[2018-03-09 20:00] VITALS: BP 139/72
[2018-03-09] MEDS: ATORVASTATIN CALCIUM 20 MG TABLET PO SCH (21:23)
[2018-03-10 00:11] VITALS: BP 133/74
[2018-03-10] MEDS: CLINDAMYCIN 600 MG/D5% WATER 50 ML IV SCH ×2 (02:56→10:37)
[2018-03-10] MEDS: TRAMADOL HCL 50 MG TABLET PO PRN (02:57)
[2018-03-10 03:50] VITALS: BP 108/65
[2018-03-10 04:34] LABS: CREATININE 1.6 mg/dL (0.5-1.5); POTASSIUM 3.9 mmol/L (3.5-5.1)
[2018-03-10 04:39] LABS: PROTHROMBIN TIME 30.8 SEC (9.6-11.6)
[2018-03-10] MEDS: ALBUTEROL SULFATE 0.083% 2.5 MG/3 ML INH IH SCH ×2 (05:59→13:24)
[2018-03-10] MEDS: ACETYLCYSTEINE 20% 200MG/ML 4ML VIAL IH SCH ×2 (05:59→13:24)
[2018-03-10] MEDS: ZOSYN 3.375GM+NS 50ML 50 ML IV SCH (06:00)
[2018-03-10] MEDS: INSULIN HUMULIN R 100 UNIT/ML 3ML SQ SCH ×4 (07:12→21:43)
[2018-03-10 07:35] VITALS: BP 117/69
[2018-03-10] MEDS: ASPIRIN 81MG TAB.CHEW PO SCH (09:22)
[2018-03-10] MEDS: FUROSEMIDE 20 MG TABLET PO SCH ×2 (09:22→21:33)
[2018-03-10] MEDS: PANTOPRAZOLE SODIUM 40 MG TABLET.DR PO SCH (09:22)
[2018-03-10] MEDS: POTASSIUM CHLORIDE 20 MEQ ERTAB PO SCH ×2 (09:22→21:34)
[2018-03-10] MEDS: METOPROLOL TARTRATE 25 MG TAB PO SCH ×2 (09:22→21:33)
[2018-03-10 11:36] VITALS: BP 111/70
[2018-03-10] MEDS ORDERED: FUROSEMIDE 10 MG/ML 2ML VIAL IV SCH (13:45)
[2018-03-10 16:35] VITALS: BP 122/67
[2018-03-10] MEDS: CLINDAMYCIN HCL 150 MG CAP PO SCH (17:41)
[2018-03-10] MEDS: IPRATROPIUM/ALBUTEROL SULFATE 3 ML SOLUTION IH SCH ×2 (18:18→22:00)
[2018-03-10 19:43] VITALS: BP 128/72
[2018-03-10] MEDS: ATORVASTATIN CALCIUM 20 MG TABLET PO SCH (21:33)
[2018-03-10] MEDS: DOXYCYCLINE HYCLATE 100 MG TABLET PO SCH (21:33)
[2018-03-11] VITALS: BP 115/69
[2018-03-11] MEDS: CLINDAMYCIN HCL 150 MG CAP PO SCH ×3 (01:28→13:06)
[2018-03-11 03:29] VITALS: BP 110/70
[2018-03-11 03:43] LABS: HEMATOCRIT 25.2 % (42-54); MEAN CORPUSCULAR HEMOGLOBIN 30.5 pg (27.0-33.0); MEAN CORPUSCULAR HGB CONC 33.7 g/dL (32.0-36.0); MEAN CORPUSCULAR VOLUME 90.7 fL (79-99); NUCLEATED RED BLOOD CELLS 0.4 % (0.0-0.19); PLATELET COUNT (AUTO) 259 K/uL (130-400); RED BLOOD CELL COUNT(AUTO) 2.78 MIL/uL (4.50-6.20); WHITE BLOOD COUNT (AUTO) 10.2 K/uL (4.8-10.8)
[2018-03-11 03:54] LABS: INR 1.81 (0.85-1.15); PARTIAL THROMBOPLASTIN TIME 40.8 SEC (26.3-35.5); PROTHROMBIN TIME 18.8 SEC (9.6-11.6)
[2018-03-11 04:00] LABS: CREATININE 1.5 mg/dL (0.5-1.5); MAGNESIUM 2.4 mg/dL (1.80-2.40); PHOSPHORUS 3.6 mg/dL (2.5-4.9); POTASSIUM 4.2 mmol/L (3.5-5.1)
[2018-03-11] MEDS: IPRATROPIUM/ALBUTEROL SULFATE 3 ML SOLUTION IH SCH ×2 (06:06→14:14)
[2018-03-11] MEDS: INSULIN HUMULIN R 100 UNIT/ML 3ML SQ SCH ×2 (06:11→13:06)
[2018-03-11 07:49] VITALS: BP 136/72
[2018-03-11 09:09] VITALS: BP 139/87
[2018-03-11] MEDS: DOXYCYCLINE HYCLATE 100 MG TABLET PO SCH (09:49)
[2018-03-11] MEDS: POTASSIUM CHLORIDE 20 MEQ ERTAB PO SCH (09:49)
[2018-03-11] MEDS: ASPIRIN 81MG TAB.CHEW PO SCH (09:49)
[2018-03-11] MEDS: FUROSEMIDE 20 MG TABLET PO SCH (09:50)
[2018-03-11] MEDS: PANTOPRAZOLE SODIUM 40 MG TABLET.DR PO SCH (09:50)
[2018-03-11] MEDS: METOPROLOL TARTRATE 25 MG TAB PO SCH (09:50)
[2018-03-11 11:29] VITALS: BP 139/85
[2018-03-11] MEDS: ACETAMINOPHEN 325 MG TAB PO PRN (13:07)
[2018-03-11] MEDS ORDERED: WARFARIN SODIUM 5 MG TAB PO SCH ×2 (16:00)
== END 2018-03-11 15:55 | DRG 233 ==
LOC: DAH 05:55 → DAHIP 05:56 → 2DH 12:35 → 2CV 03-03 07:44 → 2BH 03-05 09:25 → 2DH 03-07 17:35
PROVIDERS: ADMIT Internal Medicine Critical Care Medicine; ATTEND Internal Medicine Critical Care Medicine
PROC: B2111ZZ Fluoroscopy of Multiple Coronary Arteries using Low Osmolar Contrast (ICD-10-PCS; principal; 2018-03-02)
PROC: 4A023N7 Measurement of Cardiac Sampling and Pressure, Left Heart, Percutaneous Approach (ICD-10-PCS; 2018-03-02)
PROC: B3121ZZ Fluoroscopy of Left Subclavian Artery using Low Osmolar Contrast (ICD-10-PCS; 2018-03-02)
PROC: 06BQ4ZZ Excision of Left Saphenous Vein, Percutaneous Endoscopic Approach (ICD-10-PCS; 2018-03-03)
PROC: 0BH17EZ Insertion of Endotracheal Airway into Trachea, Via Natural or Artificial Opening (ICD-10-PCS; 2018-03-03)
PROC: 5A1935Z Respiratory Ventilation, Less than 24 Consecutive Hours (ICD-10-PCS; 2018-03-03)
PROC: 5A1935Z Respiratory Ventilation, Less than 24 Consecutive Hours (ICD-10-PCS; 2018-03-03)
PROC: 02100Z9 Bypass Coronary Artery, One Artery from Left Internal Mammary, Open Approach (ICD-10-PCS; 2018-03-03 07:35)
PROC: 021109W Bypass Coronary Artery, Two Arteries from Aorta with Autologous Venous Tissue, Open Approach (ICD-10-PCS; 2018-03-03 07:35)
PROC: 0BC48ZZ Extirpation of Matter from Right Upper Lobe Bronchus, Via Natural or Artificial Opening Endoscopic (ICD-10-PCS; 2018-03-04)
PROC: 5A1935Z Respiratory Ventilation, Less than 24 Consecutive Hours (ICD-10-PCS; 2018-03-04)
PROC: 5A1935Z Respiratory Ventilation, Less than 24 Consecutive Hours (ICD-10-PCS; 2018-03-06)
DX: I25.110 Atherosclerotic heart disease of native coronary artery with unstable angina pectoris (principal); J96.91 Respiratory failure, unspecified with hypoxia; J18.9 Pneumonia, unspecified organism; I50.41 Acute combined systolic (congestive) and diastolic (congestive) heart failure; I13.0 Hypertensive heart and chronic kidney disease with heart failure and stage 1 through stage 4 chronic kidney disease, or unspecified chronic kidney disease; E87.0 Hyperosmolality and hypernatremia; J98.11 Atelectasis; T17.890A Other foreign object in other parts of respiratory tract causing asphyxiation, initial encounter; E11.51 Type 2 diabetes mellitus with diabetic peripheral angiopathy without gangrene; E11.22 Type 2 diabetes mellitus with diabetic chronic kidney disease; Z95.2 Presence of prosthetic heart valve; I25.82 Chronic total occlusion of coronary artery; Y95 Nosocomial condition; E78.5 Hyperlipidemia, unspecified; E66.01 Morbid (severe) obesity due to excess calories; Z68.36 Body mass index [BMI] 36.0-36.9, adult; D50.0 Iron deficiency anemia secondary to blood loss (chronic); D69.59 Other secondary thrombocytopenia; I35.0 Nonrheumatic aortic (valve) stenosis; I65.22 Occlusion and stenosis of left carotid artery; Z79.01 Long term (current) use of anticoagulants; Z79.4 Long term (current) use of insulin; Z79.82 Long term (current) use of aspirin; Z79.899 Other long term (current) drug therapy; Z95.3 Presence of xenogenic heart valve
CPT/HCPCS: 36415; 36600; 71045; 71250; 80048; 80061; 81001; 82330; 82435; 82550; 82553; 82803; 82947; 82948; 83036; 83605; 83735; 83874; 83880; 84100; 84132; 84295; 84484; 85018; 85025; 85027; 85347; 85610; 85730; 86850; 86900; 86901; 86922; 87071; 87205; 88104; 88305; 88307; 88312; 93005; 93454; 93880; 94002; 94003; 94010; 94150; 94640; 94660; 94664; 94667; 94668; 97039; 99152; 99153; A4218; A4606; A7048; C1894; C9113; J0171; J0461; J0697; J1250; J1644; J1650; J1815; J1940; J2001; J2250; J2260; J2270; J2405; J2543; J2704; J2710; J2720; J3010; J3475; J3480; J3490; J7030; J7040; J7608; P9045; Q9967